=== PATIENT | male | born 1990 | race Caucasian/White ===

== ENCOUNTER 2016-08-27 19:38 | Emergency (ER) | payer OTHER ==
[~2016-08-27] VITALS: Ht 172.7 cm; Wt 90.7 kg
[~2016-08-27 19:38] MED LIST: CATAFLAM50 MG PO; CLARITIN10 MG PO; CLEOCIN HCL150 MG PO; FLONASE ALLERG9.9 ML NS; HYDROCODONE BIT1 T11 PO; MEDROL DOSEPAK4 MG PO; MOTRIN800 MG PO; ZYRTEC10 MG PO
[2016-08-27] MEDS ORDERED: PENICILLIN-VK500 MG PO (20:04)
[2016-08-27] MEDS ORDERED: LIDOCAINE VISC100 ML MM (20:04)
[2016-08-27] MEDS ORDERED: Peridex 473 ML473 ML PO (20:04)
== END 2016-08-27 20:12 | disposition home or self-care (01) ==
LOC: ED 19:38
DX: K08.89 Other specified disorders of teeth and supporting structures (principal); F17.200 Nicotine dependence, unspecified, uncomplicated; Z88.8 Allergy status to other drugs, medicaments and biological substances

== ENCOUNTER 2016-11-02 12:34 | Emergency (ER) | payer OTHER ==
[~2016-11-02] VITALS: Ht 170.1 cm; Wt 104.3 kg
[~2016-11-02 12:34] MED LIST changes: +LIDOCAINE VISC100 ML MM; +PENICILLIN-VK500 MG PO; +Peridex 473 ML473 ML PO
== END 2016-11-02 14:45 | disposition home or self-care (01) ==
LOC: ED 12:34
DX: M25.511 Pain in right shoulder (principal); M25.512 Pain in left shoulder; M25.531 Pain in right wrist; F17.200 Nicotine dependence, unspecified, uncomplicated; Z88.8 Allergy status to other drugs, medicaments and biological substances

== ENCOUNTER 2017-02-14 14:31 | Emergency (ER) | payer OTHER ==
[~2017-02-14] VITALS: Ht 170.1 cm; Wt 104.3 kg
== END 2017-02-14 19:26 | disposition home or self-care (01) ==
LOC: ED 14:31
DX: K59.00 Constipation, unspecified (principal); F17.200 Nicotine dependence, unspecified, uncomplicated; Z88.8 Allergy status to other drugs, medicaments and biological substances

== ENCOUNTER 2017-04-02 22:19 | Emergency (ER) | payer OTHER ==
[~2017-04-02] VITALS: Ht 170.1 cm; Wt 104.3 kg
== END 2017-04-03 01:28 | disposition home or self-care (01) ==
LOC: ED 22:19
DX: K59.9 Functional intestinal disorder, unspecified (principal); F17.200 Nicotine dependence, unspecified, uncomplicated; Z88.8 Allergy status to other drugs, medicaments and biological substances

== ENCOUNTER 2018-01-11 01:47 | Emergency (ER) | payer OTHER ==
[~2018-01-11] VITALS: Ht 170.1 cm; Wt 117.9 kg
[2018-01-11] MEDS ORDERED: Motrin,Rufen800 MG PO (03:17)
[2018-01-11] MEDS ORDERED: AUGMENTIN 875875 MG PO (03:17)
== END 2018-01-11 04:03 | disposition home or self-care (01) ==
LOC: ED 01:47
DX: S61.252A Open bite of right middle finger without damage to nail, initial encounter (principal); S91.332A Puncture wound without foreign body, left foot, initial encounter; Z88.8 Allergy status to other drugs, medicaments and biological substances; W54.0XXA Bitten by dog, initial encounter; Y93.89 Activity, other specified; Y92.009 Unspecified place in unspecified non-institutional (private) residence as the place of occurrence of the external cause; Y99.9 Unspecified external cause status

== ENCOUNTER 2018-01-11 14:27 | Emergency (ER) | payer OTHER ==
[~2018-01-11] VITALS: Ht 170.1 cm; Wt 108.0 kg
[~2018-01-11 14:27] MED LIST changes: +AUGMENTIN 875875 MG PO; +Motrin,Rufen800 MG PO
== END 2018-01-11 15:05 | disposition home or self-care (01) ==
LOC: ED 14:27
DX: Z23 Encounter for immunization (principal); Z88.8 Allergy status to other drugs, medicaments and biological substances

== ENCOUNTER 2018-01-14 13:50 | Emergency (ER) | payer OTHER ==
[~2018-01-14] VITALS: Ht 170.1 cm; Wt 108.0 kg
[2018-01-14] MEDS ORDERED: LEXAPRO20 MG PO (14:12)
[2018-01-14] MEDS ORDERED: SEROQUEL50 MG PO (14:13)
== END 2018-01-14 14:38 | disposition home or self-care (01) ==
LOC: ED 13:50
DX: Z23 Encounter for immunization (principal); Z88.8 Allergy status to other drugs, medicaments and biological substances

== ENCOUNTER 2018-01-18 13:59 | Emergency (ER) | payer OTHER ==
[~2018-01-18] VITALS: Ht 170.1 cm; Wt 108.0 kg
[~2018-01-18 13:59] MED LIST changes: +LEXAPRO20 MG PO; +SEROQUEL50 MG PO
== END 2018-01-18 15:54 | disposition home or self-care (01) ==
LOC: ED 13:59
DX: Z23 Encounter for immunization (principal); Z79.899 Other long term (current) drug therapy; Z88.8 Allergy status to other drugs, medicaments and biological substances

== ENCOUNTER 2018-05-24 16:47 | Emergency (ER) | payer OTHER ==
[~2018-05-24] VITALS: Ht 170.1 cm; Wt 108.0 kg
[2018-05-24] MEDS ORDERED: NAPROSYN500 MG PO (17:07)
== END 2018-05-24 18:14 | disposition home or self-care (01) ==
LOC: ED 16:47
DX: S93.401A Sprain of unspecified ligament of right ankle, initial encounter (principal); R03.0 Elevated blood-pressure reading, without diagnosis of hypertension; Z88.8 Allergy status to other drugs, medicaments and biological substances; Z79.899 Other long term (current) drug therapy; X50.1XXA Overexertion from prolonged static or awkward postures, initial encounter; Y93.89 Activity, other specified; Y92.89 Other specified places as the place of occurrence of the external cause; Y99.8 Other external cause status

== ENCOUNTER 2018-10-01 09:01 | Emergency (ER) | payer OTHER ==
[~2018-10-01] VITALS: Ht 170.1 cm; Wt 111.1 kg
[~2018-10-01 09:01] MED LIST changes: +NAPROSYN500 MG PO
[2018-10-01] MEDS ORDERED: MEDROL DOSEPAK4 MG PO (10:20)
[2018-10-01] MEDS ORDERED: ROBAXIN500 M1 PO (10:20)
== END 2018-10-01 10:25 | disposition home or self-care (01) ==
LOC: ED 09:01
DX: M43.6 Torticollis (principal); F17.200 Nicotine dependence, unspecified, uncomplicated; Z88.8 Allergy status to other drugs, medicaments and biological substances; Z79.899 Other long term (current) drug therapy

== ENCOUNTER 2018-11-29 13:39 | Emergency (ER) | payer OTHER ==
[~2018-11-29] VITALS: Ht 170.1 cm; Wt 114.8 kg
[~2018-11-29 13:39] MED LIST changes: +ROBAXIN500 M1 PO
[2018-11-29] MEDS ORDERED: NORCO 5-325 TA1 EACH PO (14:25)
[2018-11-29] MEDS ORDERED: SILVADENE,SSD C50 GM T (14:25)
[2018-11-29] MEDS ORDERED: IBUPROFEN600 MG PO (14:25)
== END 2018-11-29 14:13 | disposition home or self-care (01) ==
LOC: ED 13:39
DX: T23.212A Burn of second degree of left thumb (nail), initial encounter (principal); Z88.8 Allergy status to other drugs, medicaments and biological substances; Z79.899 Other long term (current) drug therapy; X15.8XXA Contact with other hot household appliances, initial encounter; Y93.89 Activity, other specified; Y92.89 Other specified places as the place of occurrence of the external cause; Y99.8 Other external cause status

== ENCOUNTER 2019-02-22 18:37 | Emergency (ER) | payer OTHER ==
[~2019-02-22] VITALS: Ht 170.1 cm; Wt 113.4 kg
[~2019-02-22 18:37] MED LIST changes: +IBUPROFEN600 MG PO; +NORCO 5-325 TA1 EACH PO; +SILVADENE,SSD C50 GM T
[2019-02-22] MEDS ORDERED: ROBITUSSIN DM 101 OZ PO (18:50)
[2019-02-22] MEDS ORDERED: AUGMENTIN 875-875 MG PO (18:50)
[2019-02-22] MEDS ORDERED: TESSALON PERLE100 MG PO ×2 (19:16→19:17)
== END 2019-02-22 19:13 | disposition home or self-care (01) ==
LOC: ED 18:37
DX: J01.90 Acute sinusitis, unspecified (principal); F17.200 Nicotine dependence, unspecified, uncomplicated; Z88.8 Allergy status to other drugs, medicaments and biological substances; Z79.899 Other long term (current) drug therapy

== ENCOUNTER 2019-04-28 15:00 | Emergency (ER) | payer OTHER ==
[~2019-04-28] VITALS: Ht 170.1 cm; Wt 117.9 kg
[~2019-04-28 15:00] MED LIST changes: +AUGMENTIN 875-875 MG PO; +ROBITUSSIN DM 101 OZ PO; +TESSALON PERLE100 MG PO
[2019-04-28] MEDS ORDERED: MEDROL DOSEPAK4 MG PO (17:20)
[2019-04-28] MEDS ORDERED: CYCLOBENZAPRINE5 M3 PO (17:20)
== END 2019-04-28 17:22 | disposition home or self-care (01) ==
LOC: ED 15:00
DX: S39.012A Strain of muscle, fascia and tendon of lower back, initial encounter (principal); F17.200 Nicotine dependence, unspecified, uncomplicated; Z88.8 Allergy status to other drugs, medicaments and biological substances; Z79.899 Other long term (current) drug therapy; Z79.2 Long term (current) use of antibiotics; X50.0XXA Overexertion from strenuous movement or load, initial encounter; Y93.89 Activity, other specified; Y92.098 Other place in other non-institutional residence as the place of occurrence of the external cause; Y99.8 Other external cause status

== ENCOUNTER 2019-05-02 13:16 | Emergency (ER) | payer OTHER ==
[~2019-05-02] VITALS: Ht 170.1 cm; Wt 117.9 kg
[~2019-05-02 13:16] MED LIST changes: +CYCLOBENZAPRINE5 M3 PO
== END 2019-05-02 14:50 | disposition home or self-care (01) ==
LOC: ED 13:16
DX: M54.6 Pain in thoracic spine (principal); M54.5 Low back pain; Z88.8 Allergy status to other drugs, medicaments and biological substances; Z79.899 Other long term (current) drug therapy; X50.0XXA Overexertion from strenuous movement or load, initial encounter; Y93.89 Activity, other specified; Y92.89 Other specified places as the place of occurrence of the external cause; Y99.8 Other external cause status

== ENCOUNTER 2019-11-17 12:39 | Emergency (ER) | payer OTHER ==
[2019-11-17] MEDS ORDERED: PREDNISONE50 MG PO (14:14)
[2019-11-17] MEDS ORDERED: CYCLOBENZAPRINE10 MG PO (14:14)
== END 2019-11-17 14:24 | disposition home or self-care (01) ==
LOC: ED 12:39
DX: S39.012A Strain of muscle, fascia and tendon of lower back, initial encounter (principal); Z88.8 Allergy status to other drugs, medicaments and biological substances; Z79.899 Other long term (current) drug therapy; X58.XXXA Exposure to other specified factors, initial encounter; Y93.89 Activity, other specified; Y92.89 Other specified places as the place of occurrence of the external cause; Y99.8 Other external cause status

== ENCOUNTER → 2022-08-23 | Outpatient (CLI) | payer OTHER ==
[~2022-08-23] MED LIST changes: +CYCLOBENZAPRINE10 MG PO; +PREDNISONE50 MG PO
== END | disposition home or self-care (01) ==
LOC: CT 01:34
PROVIDERS: ATTEND Internal Medicine
DX: K43.9 Ventral hernia without obstruction or gangrene (principal); K42.9 Umbilical hernia without obstruction or gangrene; R60.0 Localized edema

== ENCOUNTER 2023-05-28 15:54 | Emergency (ER) | payer OTHER ==
[~2023-05-28] VITALS: Ht 170.1 cm; Wt 99.8 kg
[2023-05-28] MEDS ORDERED: TAMIFLU 75MG CA75 MG PO (17:39)
== END 2023-05-28 17:53 | disposition home or self-care (01) ==
LOC: ED 15:54
DX: J11.1 Influenza due to unidentified influenza virus with other respiratory manifestations (principal); Z88.8 Allergy status to other drugs, medicaments and biological substances; Z20.822 Contact with and (suspected) exposure to COVID-19

== ENCOUNTER 2024-01-01 21:00 | Emergency (ER) | payer OTHER ==
[~2024-01-01] VITALS: Ht 170.1 cm; Wt 90.7 kg
[~2024-01-01 21:00] MED LIST changes: +TAMIFLU 75MG CA75 MG PO
[2024-01-02] MEDS ORDERED: FLUORESCEIN SODIUM 1 MG STRIP OPH ONE (00:25)
[2024-01-02] MEDS ORDERED: Tetracaine Hydrochloride 0.5% 4 ML BOT OPH ONE (00:25)
[2024-01-02] MEDS ORDERED: TOBRAMYCIN 2.5 ML BOT OPH ONE (01:25)
[2024-01-02] MEDS ORDERED: CIPROFLOXACIN H10 ML OPH (13:14)
== END 2024-01-02 01:34 | disposition home or self-care (01) ==
LOC: ED 21:00
DX: S05.02XA Injury of conjunctiva and corneal abrasion without foreign body, left eye, initial encounter (principal); Z88.8 Allergy status to other drugs, medicaments and biological substances; Z79.899 Other long term (current) drug therapy; W22.8XXA Striking against or struck by other objects, initial encounter; Y93.89 Activity, other specified; Y92.89 Other specified places as the place of occurrence of the external cause; Y99.8 Other external cause status